=== PATIENT | male | born 1985 | race Caucasian/White ===

== ENCOUNTER 2018-02-28 20:58 | Emergency (ER) | payer OTHER ==
[~2018-02-28] VITALS: Ht 182.9 cm; Wt 81.6 kg
[~2018-02-28 20:58] MED LIST: MOTRIN 600 MG600 MG PO; ZOFRAN ODT4 MG PO
[2018-02-28 21:05] VITALS: BP 114/68
[2018-03-01] MEDS ORDERED: MEDROL4 M2 PO (22:52)
[2018-03-01] MEDS ORDERED: AMOXICILLIN875 M1 PO (22:52)
== END 2018-02-28 22:14 | disposition admitted as inpatient to this hospital (09) ==
LOC: ERH 20:58
DX: M27.8 Other specified diseases of jaws (principal)

== ENCOUNTER 2018-03-01 23:43 | Emergency (ER) | payer OTHER ==
[~2018-03-01] VITALS: Ht 182.9 cm; Wt 81.6 kg
[~2018-03-01 23:43] MED LIST changes: +AMOXICILLIN875 M1 PO; +MEDROL4 M2 PO
[2018-03-01 23:50] VITALS: BP 118/62
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
[2018-03-02] MEDS ORDERED: ORPHENADRINE C100 MG PO (06:01)
== END 2018-03-02 06:07 ==
LOC: ERH 23:43
DX: T78.40XA Allergy, unspecified, initial encounter (principal); F14.10 Cocaine abuse, uncomplicated
CPT/HCPCS: 80307; 93005; 93010; 96374

== ENCOUNTER 2018-03-15 14:29 | Inpatient (IN) | payer OTHER ==
[~2018-03-15] VITALS: Ht 185.4 cm; Wt 76.7 kg
[~2018-03-15 14:29] MED LIST changes: +ORPHENADRINE C100 MG PO
[2018-03-15 18:05] LABS: ABSOLUTE BASOPHIL COUNT 0.1 /CUMM (0.0-0.2); ABSOLUTE EOSINOPHIL COUNT 0.4 /CUMM (0.0-0.7); ABSOLUTE GRANULOCYTE CT 3.3 /CUMM (1.4-6.5); ABSOLUTE LYMPH COUNT 1.9 /CUMM (1.2-3.4); ABSOLUTE MONOCYTE COUNT 0.8 /CUMM (0.10-0.60); BASOPHIL % 1.1 % (0.0-2.0); EOSINOPHIL % 5.5 % (0-5); GRANULOCYTE % 50.9 % (42.2-75.2); MEAN CORPUSCULAR HGB 29.1 PG (27.0-31.0); MEAN CORPUSCULAR HGB CONC 33.1 G/DL (33.0-37.0); MEAN CORPUSCULAR VOLUME 87.8 FL (80.0-94.0); MEAN PLATELET VOLUME 8.1 FL (7.4-10.4); PLATELET COUNT 259 /CUMM (130-400); RBC DISTRIBUTION WIDTH 13.3 % (11.5-14.5); RED BLOOD CELL CT 5.47 /CUMM (4.70-6.10); WHITE BLOOD CELL COUNT 6.4 /CUMM (4.8-10.8)
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
[2018-03-16 16:34] VITALS: BP 112/45
[2018-03-16 20:07] VITALS: BP 119/66
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
--- NOTE | 2018-03-16 20:07 | Admission Certification ---
Admission Certification Certification Statement - As attending physician, I certify that at the time of - admission, based on clinical presentation, severity of - symptoms, need for further diagnostic testing and - therapeutic interventions, and risk of adverse outcomes - without in-hospital treatment, in my clinical assessment, - this patient requires an acute hospital stay for a minimum - of two nights or longer. I have also considered psychsocial - factors such as support system, advanced age, financial - issues, cognitive issues, and failed out-patient treatments, - past re-admission history, safety of patient, and lack of - compliance as applicable. Specific rationale supporting this admission is: Depression, cocaine use disorder.
[2018-03-17 07:40] VITALS: BP 104/54
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
[2018-03-17 12:15] VITALS: BP 113/55
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
--- NOTE | 2018-03-17 16:22 | SOCIAL WORKER PROG NOTE PSYCH ---
Social Work Progress Note Progress Note Charly talked about having a long period of clean time from [id number]. He reported using crack cocaine in the last several months. He said he isn't depressed or suicidal and that he only came in to get a break from the drug use. He couldn't say for sure how much he's been using as it various from week to week. He thinks he relapsed over this past year because he became too comfortable and stopped working on goals. He also became very comfortable financially due to extra income from work and recently selling his house. He reports having $129,000 from the sale of his home. He doesn't have a current place where he has been living since he just sold his home, but he reports that he has several options from family to stay with until he finds a place. His fiance is currently working on her own sobriety in a sober house and his 6 year old daughter is currently living with his parents. 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 He is open to a referral to [facility]. As we talked, he clearly didn't seem depressed. He actually appeared a little energized. I asked if he felt that way and he said yes. He says he's been feeling like that for the past 4 days. He is having difficulty sleeping and reports that he will get up at 6am and stay awake until 11-12am. At that point he decides to use some cocaine to just stay up and give him energy to go to work. Asked about issues with anger. He reports he gets angry on occasion and "flips out." I asked for an example of what might trigger this. He said if someone has disregard for him and cuts in front of him in a store. He can seem to control it though when his daughter is with him. He also reported feeling upset with another peer on the unit who he felt angry with. He has kept his anger in control. I asked about having a family meeting with his parents or sister? He refused stating he's 34 years old and doesn't want them involved. Charly used humor throughout the conversation. He may be able to d/c tomorrow. Will discuss with the team.
[2018-03-17 16:32] VITALS: BP 1118/53
[2018-03-17 20:20] VITALS: BP 126/59
[2018-03-18 07:42] VITALS: BP 118/72
--- NOTE | 2018-03-18 08:22 | CP SOUTH PROGRESS NOTE PSYCH ---
Psych (Inpt) Progress Note Progress Note Treatment team discussed Pt's progress, treatment plan, and aftercare plans. The treatment team included: LCSWs, RNs, Group & Activity Therapy staff, and psychiatrist. Vital Signs Date Time Temp Pulse B/P 03/18 1216 60 115/55 03/18 0742 97.0 60 118/72 03/17 2020 97.9 57 126/59 Mental Status Examination The patient was steady on his feet, tall thin and athletic white male, cooperative, increased psychomotor activity, some fidgetiness, talkative with some pressure Full range of affect, he denied feeling depressed, denied thinking of suicide today, denied having violent thoughts or thoughts of homicide, denied hallucinations, Denied feeling paranoid, there were no delusions during the interview. There were no difficulties with thought organization. Patient seems to have partial insight. Judgment depends on sobriety. He was alert and oriented to time, place, and person. He seems to have minor difficulties with attention and concentration. Did not seem to have any difficulties with short-term memory. Assessment: 32-year-old single white male who was admitted because of recent cocaine use/ relapse with symptoms of hopelessness and uselessness/worthlessness loss of energy appetite and motivation and impairments in attention and concentration Diagnoses: Unspecified depressive disorder Cocaine use disorder Unspecified anxiety disorder Cannabis use disorder Treatment Plan: D/C Home Acetaminophen 650 MG Q4P PRN 03/16 1545 DCD Al Hydroxide/Mg 30 ML Q4-6 PRN PRN 03/16 1545 DCD Benztropine Mesylate 1 MG Q6P PRN 03/16 1545 DCD Gabapentin 1,200 MG AT BEDTIME 03/17 2100 DCD 03/17 Gabapentin 800 MG Q8P PRN 03/17 1500 DCD 03/18 Haloperidol 5 MG Q6P PRN 03/16 1545 DCD Lorazepam 2 MG Q6P PRN 03/16 1545 DCD Magnesium Hydroxide 30 ML AT BEDTIME PRN 03/16 1545 DCD Nicotine 2 MG Q2 HRS NEEDED PRN 03/16 1930 DCD 03/18
[2018-03-18] MEDS ORDERED: NEURONTIN800 M2 PO (10:12)
[2018-03-18] MEDS ORDERED: NICORELIEF2 MG PO (10:12)
[2018-03-18] MEDS ORDERED: LEXAPRO10 M1 PO (10:14)
--- NOTE | 2018-03-18 10:14 | Patient Discharge Instructions ---
Psych Discharge Inst General Discharge Information Reason for Admission: Sense of hopelessness and helplessness and worthlessness Psy Discharge Primary Diag+ unspecified depressive DO Psy Discharge Secondary Diag+ Cocaine Use Disorder Summary Tests/Major Procedures Lab Urine Cannabis Screen 76.20 NG/ML H 03/15/182016 Urine Cocaine Screen > 1000 NG/ML H 03/15/182016 Studies Pending at DC: None Patient Instructions Contact Information Your Psychiatrist on [facility] was Dago LORENZO,[place] * If you are experiencing an emergency related to this hospitalization, please call [phone] to contact the treating psychiatrist or the psychiatrist-on- call. * To Request a copy of your medical records, please contact the Medical Records Department at [phone]. * To request results of studies pending at the time of discharge, please call [phone]. * Continue your Medications until directed to stop by your Healthcare provider. General Medication Information Please continue to take your new medications and your continued home medications , unless otherwise indicated on your discharge medication list, or unless directed by your MD or SORTING GRAPPLE OPERATOR to stop them. Special Instructions Diet Regular Activity Normal - Tobacco Use Treatment Offered Post DC Medications Offered: Script Given-See Med List Post DC Tobacco Treatment Plan: Refused Tobacco Tx Pgm - EtOH/Drug Use D/O Treatment Offered Post DC Medications Offered: Med Not Indicated for D/O Post DC EtOH/SubAbuse TX Plan: Jay SubAbuse/Dual IOP Metabolic Screening ([X]) Not Applicable, patient not on a neuroleptic. Advance Directives Does the Patient have Medical Advance Directives No/Refused further info Does Pt have Psychiatric Advance Directives? No/Refused further info Does Patient have a Designated Surrogate Decision Maker: No Information About Psychiatric Advance Directives Provided? Refused Discharge Plan Post Hospital Treatment Plan: Dual Track IOP
--- NOTE | 2018-03-18 10:57 | SOCIAL WORKER PROG NOTE PSYCH ---
Social Work Progress Note Progress Note Thomas Villarreal (DIGITAL ACCOUNT EXECUTIVE Drafter Topographical) and I met with Charly this morning to see how he was doing and discuss discharge plans. Gutierrez reported that he slept from 12-7pm and he feels good today. His goal of this admission seems to have been met at this point. He said he wanted to get on some medication and he wanted to connect to [facility]. I let him know that I set up an intake for [facility] for 1:15 today. He was pleased to hear this. He will stop by his Grandmother's house for a visit when he is done with his intake. Asked about his relapse prevention plan at this point? He is ambivalent about trying AA/NA. He hasn't been comfortable with some of the meetings he has been to in the past. He doesn't care for some of the people at the meetings. Stating they are getting high prior to coming in and are basically mandated to be there. He would prefer to go to [facility], work, and spend time with family and do other activities to structure his time. He describes himself as a goal oriented person and knowing what he wants. He feels this is an asset for him to stay motivated to be clean. Continues to have a sense of humor, outgoing personality, talkative but didn't appear overly energized today.
[2018-03-18 12:16] VITALS: BP 115/55
--- NOTE | 2018-03-18 12:51 | SOCIAL WORKER PROG NOTE PSYCH ---
Social Work Progress Note Progress Note Transfer Faxed to [facility] [place]. Transfer and fax confirmation in patient chart.
--- NOTE | 2018-03-18 13:09 | SOCIAL WORKER PROG NOTE PSYCH ---
Social Work Progress Note Faxed Referral(s) Referred To: [facility] Transition of Care Documents sent: Health Summary Faxed to: [facility] Fax #: [phone] Faxed by: Alethea Bauer Date faxed: 03/18/18 Time Faxed: [phone]
--- NOTE | 2018-03-18 15:04 | DISCHARGE SUMMARY REPORT-PSYCH ---
Visit Information Visit Dates/Diagnosis' Admission Date: 03/16/18 Discharge Date: 03/18/18 Reason for Admission: Sense of hopelessness and helplessness and worthlessness Psy Discharge Primary Diag: unspecified depressive DO Psy Discharge Secondary Diag: Cocaine Use Disorder Hospital Course Course Allergies: Coded Allergies: peanut (Intermediate, HIVES 07/05/17) shellfish derived (Intermediate, HIVES 07/05/17) Hospital Course/TX Response: Mental Status Examination The patient was steady on his feet, tall thin and athletic white male, cooperative, increased psychomotor activity, some fidgetiness, talkative with some pressure, Full range of affect, he denied feeling depressed, denied thinking of suicide today, denied having violent thoughts or thoughts of homicide, denied hallucinations, Denied feeling paranoid, there were no delusions during the interview. There were no difficulties with thought organization. Patient seems to have partial insight. Judgment depends on sobriety. He was alert and oriented to time, place, and person. He seems to have minor difficulties with attention and concentration. Did not seem to have any difficulties with short-term memory. Assessment: 32-year-old single white male who was admitted because of recent cocaine use/ relapse with symptoms of hopelessness and uselessness/worthlessness loss of energy appetite and motivation and impairments in attention and concentration Diagnoses: Unspecified depressive disorder Cocaine use disorder Unspecified anxiety disorder Cannabis use disorder Treatment Plan: D/C Home Discharge HBIPS - Tobacco Use Treatment Offered - EtOH/Drug Use D/O Treatment Offered Metabolic Screening - Screen if on a Neuroleptic Medication - Metabolic screening should include: - Blood Pressure, BMI, Glucose or Hgb A1c, & a - Lipid profile from within the past 365 days. Discharge Instructions General Discharge Information Discharge Diet Regular Discharge Activity Normal Referrals Ordered Referrals Provider Referral 03/18/18 For Groups: [[facility] Intensive Outpatient] [facility] for mental health and substance use treatment Intake 03/18/18 1:15pm [address] [place] [address] Provider Referral 03/23/18 For Groups: Outpatient Psychiatry [facility] Smoking Cessation Group 03/23/18 4pm [address] [address] Prescriptions Start taking the following new medications: Nicotine (Nicorelief) 2 MG GUM 2 Milligram ORAL EVERY 2 HOURS NEEDED as needed for PER PROTOCOL Qty = 60 No Refills Comments: Last Taken:03/18/18 Time:8:30AM Gabapentin (Neurontin) 800 MG TABLET 1 Tablet ORAL SEE INSTRUCTIONS Qty = 90 No Refills Instructions: one capsule during the day and 2 capsules at bedtime Comments: Last Taken:03/18/18 Time:8:30AM Escitalopram Oxalate (Lexapro) 10 MG TABLET 1 Tablet ORAL SEE INSTRUCTIONS Qty = 30 No Refills Instructions: 1 tab QAM x 1 week then 2 tabs QAM Comments: Last Taken:TO START AT HOME Time: Studies Pending at Discharge None
== END 2018-03-18 13:12 | DRG 754 ==
LOC: ERH 14:29 → ERHI 03-16 08:48 → CP SOUTH 03-16 08:48
PROVIDERS: Physician Assistant
DX: F32.9 Major depressive disorder, single episode, unspecified (principal); F14.90 Cocaine use, unspecified, uncomplicated
CPT/HCPCS: 80307; 93005; 93010; G0480

== ENCOUNTER 2018-05-22 03:17 | Emergency (ER) | payer OTHER ==
[~2018-05-22] VITALS: Ht 185.4 cm; Wt 81.6 kg
[~2018-05-22 03:17] MED LIST changes: +LEXAPRO10 M1 PO; +NEURONTIN800 M2 PO; +NICORELIEF2 MG PO
[2018-05-22] MEDS ORDERED: TRAZODONE HCL50 M1 PO (03:34)
[2018-05-22] MEDS ORDERED: BUPROPION XL150 MG PO (03:35)
[2018-05-22 04:24] LABS: ABSOLUTE BASOPHIL COUNT 0 /CUMM (0.0-0.2); ABSOLUTE EOSINOPHIL COUNT 0.1 /CUMM (0.0-0.7); ABSOLUTE MONOCYTE COUNT 0.9 /CUMM (0.10-0.60); MEAN PLATELET VOLUME 7.5 FL (7.4-10.4)
[2018-05-22 04:28] LABS: ABSOLUTE LYMPH COUNT 1.5 /CUMM (1.2-3.4); BASOPHIL % 0.6 % (0.0-2.0); EOSINOPHIL % 0.9 % (0-5); GRANULOCYTE % 61.7 % (42.2-75.2); MEAN CORPUSCULAR HGB 29.4 PG (27.0-31.0); MEAN CORPUSCULAR HGB CONC 34.2 G/DL (33.0-37.0); MEAN CORPUSCULAR VOLUME 86.1 FL (80.0-94.0); PLATELET COUNT 249 /CUMM (130-400); RBC DISTRIBUTION WIDTH 13.2 % (11.5-14.5); RED BLOOD CELL CT 5.11 /CUMM (4.70-6.10); WHITE BLOOD CELL COUNT 6.5 /CUMM (4.8-10.8)
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
[2018-05-22 05:30] VITALS: BP 108/55
== END 2018-05-22 06:50 ==
LOC: ERH 03:17
PROVIDERS: Emergency Medicine
DX: E86.0 Dehydration (principal); R51 Headache
CPT/HCPCS: 96361; 96374; J1885